=== PATIENT | male | born 1950 | race African-American/Black ===

== ENCOUNTER 2018-07-16 16:28 | Inpatient (IN) | payer MEDICARE ==
[~2018-07-16] VITALS: Ht 167.6 cm; Wt 58.8 kg
[2018-07-16 17:15] LABS: BASOPHILS % (AUTO) 0.8 % (0.0-2.0); EOSINOPHILS % (AUTO) 0.4 % (1.0-6.0); HEMATOCRIT 32.7 % (41-53); HEMOGLOBIN 10.5 g/dL (13.5-17.5); LYMPHOCYTES # (AUTO) 0.7 K/uL (1.0-4.8); MEAN CORPUSCULAR HEMOGLOBIN 27.7 pg (26.0-34.0); MEAN CORPUSCULAR HGB CONC 32.3 G/dL (31.0-37.0); MEAN CORPUSCULAR VOLUME 86 fL (80-100); MONOCYTES % (AUTO) 8.8 % (2.0-9.0); NEUTROPHILS # (AUTO) 9.6 K/uL (1.8-7.7); PLATELET COUNT (AUTO) 506 K/uL (150-450); RED BLOOD CELL COUNT(AUTO) 3.81 MIL/uL (4.50-5.90); RED CELL DISTRIBUTION WIDTH 15.7 % (11.5-14.5)
[2018-07-16 17:41] LABS: ALBUMIN 2.7 g/dL (3.4-5.0); BILIRUBIN,TOTAL 0.5 mg/dL (0.1-1.0); CALCIUM, TOTAL 9.3 mg/dL (8.8-10.5); TOTAL PROTEIN, SERUM 7.6 g/dL (6.4-8.2)
[2018-07-16 17:59] LABS: CREATININE 20.45 mg/dL (0.60-1.30)
[2018-07-16] MEDS ORDERED: INSULIN REGULAR, HUMAN 100 UNITS/ML IVP ONE (18:15)
[2018-07-16] MEDS ORDERED: ALBUTEROL SULFATE 2.5 MG/0.5 ML NEB SOLUTION NEB ONE (18:15)
[2018-07-16] MEDS ORDERED: DEXTROSE 50%-WATER 25 GM/50 ML SYRINGE IVP ONE (18:15)
[2018-07-16] MEDS ORDERED: 0.9% SODIUM CHLORIDE 10 ML SYRINGE IVP PRN (18:30)
[2018-07-16] MEDS ORDERED: ONDANSETRON HCL 4 MG/2 ML VIAL IVP PRN (18:30)
[2018-07-16] MEDS ORDERED: ACETAMINOPHEN 325 MG TABLET PO PRN (18:30)
[2018-07-16] MEDS ORDERED: PARICALCITOL 5 MCG/1 ML VIAL IVP ONE (18:45)
[2018-07-16 19:33] VITALS: BP 200/90
[2018-07-16] MEDS ORDERED: CloNIDine HCL 0.1 MG TABLET PO PRN (21:15)
[2018-07-16] MEDS ORDERED: BISACODYL 10 MG RECTAL RECTAL SUPPOSITORY PR PRN (21:15)
[2018-07-16] MEDS ORDERED: PNEUMOCOCCAL VACCINE POLYVALENT 0.5 ML VIAL [PPSV23] IM ONE (22:15)
[2018-07-16 23:49] VITALS: BP 129/78
[2018-07-17 04:49] VITALS: BP 175/93
[2018-07-17 06:29] LABS: BASOPHILS % (AUTO) 0.9 % (0.0-2.0); HEMATOCRIT 31.6 % (41-53); HEMOGLOBIN 10.2 g/dL (13.5-17.5); LYMPHOCYTES # (AUTO) 0.9 K/uL (1.0-4.8); LYMPHOCYTES % (AUTO) 8.5 % (22.0-44.0); MEAN CORPUSCULAR HEMOGLOBIN 27.6 pg (26.0-34.0); MEAN CORPUSCULAR HGB CONC 32.2 G/dL (31.0-37.0); MEAN CORPUSCULAR VOLUME 86 fL (80-100); MONOCYTES % (AUTO) 9.4 % (2.0-9.0); NEUTROPHILS # (AUTO) 8.7 K/uL (1.8-7.7); NEUTROPHILS % (AUTO) 80.2 % (40.0-70.0); PLATELET COUNT (AUTO) 498 K/uL (150-450); RED BLOOD CELL COUNT(AUTO) 3.67 MIL/uL (4.50-5.90); RED CELL DISTRIBUTION WIDTH 16.3 % (11.5-14.5)
[2018-07-17 06:33] VITALS: BP 159/88
[2018-07-17 06:49] LABS: ALBUMIN 2.7 g/dL (3.4-5.0); BILIRUBIN,TOTAL 0.6 mg/dL (0.1-1.0); CREATININE 12.46 mg/dL (0.60-1.30); POTASSIUM 5.4 mmol/L (3.5-5.1); TOTAL PROTEIN, SERUM 7.4 g/dL (6.4-8.2)
[2018-07-17 07:42] VITALS: BP 135/91
[2018-07-17] MEDS: FAMOTIDINE 20 MG TABLET PO SCH (08:38)
[2018-07-17] MEDS: HEPARIN SODIUM,PORCINE 5,000 UNITS/ML VIAL SQ SCH ×2 (08:38→19:49)
[2018-07-17] MEDS: DOCUSATE SODIUM 100 MG CAPSULE PO SCH ×2 (08:38→19:48)
[2018-07-17] MEDS: AmLODIPine BESYLATE 10 MG TABLET PO SCH (08:38)
[2018-07-17 11:11] VITALS: BP 138/82
[2018-07-17] MEDS ORDERED: SODIUM CHLORIDE 0.9% 1,000 ML IV ONE (13:46)
[2018-07-17 15:18] VITALS: BP 150/77
[2018-07-17 19:39] VITALS: BP 119/63
[2018-07-17] MEDS: ACETAMINOPHEN 325 MG TABLET PO PRN (19:49)
[2018-07-18] VITALS (7 sets, daily range): BP systolic 108–157; BP diastolic 67–90
[2018-07-18] MEDS: HEPARIN SODIUM,PORCINE 5,000 UNITS/ML VIAL SQ SCH ×2 (08:09→20:38)
[2018-07-18] MEDS: FAMOTIDINE 20 MG TABLET PO SCH (08:09)
[2018-07-18] MEDS: DOCUSATE SODIUM 100 MG CAPSULE PO SCH ×2 (08:10→20:37)
[2018-07-18] MEDS: AmLODIPine BESYLATE 10 MG TABLET PO SCH (08:11)
[2018-07-18] MEDS ORDERED: SODIUM CHLORIDE 0.9% 1,000 ML IV ONE (08:16)
[2018-07-18 09:28] LABS: BASOPHILS % (AUTO) 0.6 % (0.0-2.0); EOSINOPHILS % (AUTO) 0.6 % (1.0-6.0); HEMATOCRIT 36.1 % (41-53); HEMOGLOBIN 11.4 g/dL (13.5-17.5); LYMPHOCYTES # (AUTO) 0.8 K/uL (1.0-4.8); LYMPHOCYTES % (AUTO) 7.1 % (22.0-44.0); MEAN CORPUSCULAR HEMOGLOBIN 27.6 pg (26.0-34.0); MEAN CORPUSCULAR HGB CONC 31.7 G/dL (31.0-37.0); MEAN CORPUSCULAR VOLUME 87 fL (80-100); MONOCYTES % (AUTO) 8.7 % (2.0-9.0); NEUTROPHILS # (AUTO) 9.8 K/uL (1.8-7.7); PLATELET COUNT (AUTO) 541 K/uL (150-450); RED BLOOD CELL COUNT(AUTO) 4.14 MIL/uL (4.50-5.90); RED CELL DISTRIBUTION WIDTH 16.3 % (11.5-14.5)
[2018-07-18 09:38] LABS: CALCIUM, TOTAL 11.5 mg/dL (8.8-10.5); CREATININE 6.94 mg/dL (0.60-1.30)
[2018-07-18] MEDS: CLINDAMYCIN HCL 300 MG CAPSULE PO SCH ×3 (11:17→23:21)
[2018-07-18] MEDS: ACETAMINOPHEN 325 MG TABLET PO PRN (11:17)
[2018-07-18] MEDS ORDERED: MANNITOL 25%-12.5 GM/50 ML VIAL IVP ONE (12:00)
[2018-07-19 04:21] VITALS: BP 138/59
[2018-07-19] MEDS: ACETAMINOPHEN 325 MG TABLET PO PRN (06:43)
[2018-07-19 07:14] VITALS: BP 117/89
[2018-07-19] MEDS: VITAMIN B COMP/VIT C/FOLIC ACID CAPSULE PO SCH (08:34)
[2018-07-19] MEDS: FAMOTIDINE 20 MG TABLET PO SCH (08:35)
[2018-07-19] MEDS: CLINDAMYCIN HCL 300 MG CAPSULE PO SCH ×2 (08:35→16:21)
[2018-07-19] MEDS: HEPARIN SODIUM,PORCINE 5,000 UNITS/ML VIAL SQ SCH ×2 (08:35→20:40)
[2018-07-19] MEDS: EPOETIN ALFA 10,000 UNITS/ML VIAL SQ SCH (08:36)
[2018-07-19] MEDS: DOCUSATE SODIUM 100 MG CAPSULE PO SCH ×2 (08:36→20:39)
[2018-07-19] MEDS: AmLODIPine BESYLATE 10 MG TABLET PO SCH (09:00)
[2018-07-19 11:02] VITALS: BP 122/62
[2018-07-19] MEDS: ASPIRIN 81 MG CHEWABLE TABLET PO SCH (12:07)
[2018-07-19] MEDS: HYDROCODONE/ACETAMINOPHEN 5-325 MG TABLET PO PRN ×2 (12:09→18:37)
[2018-07-19 14:55] VITALS: BP 132/72
[2018-07-19] MEDS ORDERED: QUEtiapine FUMARATE 25 MG TABLET PO PRN (19:00)
[2018-07-19 20:04] VITALS: BP 140/92
[2018-07-19] MEDS: QUEtiapine FUMARATE 25 MG TABLET PO SCH (20:39)
[2018-07-20] MEDS: HYDROCODONE/ACETAMINOPHEN 5-325 MG TABLET PO PRN ×2 (00:26→07:48)
[2018-07-20] MEDS: CLINDAMYCIN HCL 300 MG CAPSULE PO SCH ×3 (00:26→16:51)
[2018-07-20 00:27] VITALS: BP 145/73
[2018-07-20 04:59] VITALS: BP 132/76
[2018-07-20 07:36] VITALS: BP 165/85
[2018-07-20] MEDS: AmLODIPine BESYLATE 10 MG TABLET PO SCH (07:48)
[2018-07-20] MEDS: VITAMIN B COMP/VIT C/FOLIC ACID CAPSULE PO SCH (07:48)
[2018-07-20] MEDS: ASPIRIN 81 MG CHEWABLE TABLET PO SCH (07:48)
[2018-07-20] MEDS: DOCUSATE SODIUM 100 MG CAPSULE PO SCH ×2 (07:48→21:14)
[2018-07-20] MEDS: FAMOTIDINE 20 MG TABLET PO SCH (07:48)
[2018-07-20] MEDS: HEPARIN SODIUM,PORCINE 5,000 UNITS/ML VIAL SQ SCH ×2 (07:51→21:14)
[2018-07-20 10:56] VITALS: BP 126/60
[2018-07-20] MEDS ORDERED: SODIUM CHLORIDE 0.9% 0 ML ONE (11:40)
[2018-07-20] MEDS ORDERED: IOVERSOL 350 MG/ML 100 ML VIAL ONE (11:40)
[2018-07-20 13:24] LABS: GLUCOMETER DEV NAME(LOC) 5S.1; GLUCOSE,POINT OF CARE 107 MG/DL (70-110)
[2018-07-20] MEDS ORDERED: QUEtiapine FUMARATE 25 MG TABLET PO PRN (15:00)
[2018-07-20 15:43] VITALS: BP 125/87
[2018-07-20] MEDS ORDERED: HEPARIN SODIUM,PORCINE 1,000 UNITS/ML VIAL IVP ONE (17:48)
[2018-07-20 19:55] VITALS: BP 123/79
[2018-07-20] MEDS: QUEtiapine FUMARATE 25 MG TABLET PO SCH (21:14)
[2018-07-21] MEDS: CLINDAMYCIN HCL 300 MG CAPSULE PO SCH ×4 (00:04→23:37)
[2018-07-21] MEDS: HYDROCODONE/ACETAMINOPHEN 5-325 MG TABLET PO PRN ×2 (00:04→11:35)
[2018-07-21 00:53] VITALS: BP 109/70
[2018-07-21 04:34] VITALS: BP 114/70
[2018-07-21] MEDS ORDERED: SODIUM CHLORIDE 0.9% 1,000 ML IV ONE ×2 (08:00→08:29)
[2018-07-21 08:09] VITALS: BP 139/79
[2018-07-21] MEDS ORDERED: SODIUM CHLORIDE 0.9% IRRIG BAG 1,000 ML IRRIG ONE (08:49)
[2018-07-21] MEDS: HEPARIN SODIUM,PORCINE 5,000 UNITS/ML VIAL SQ SCH ×2 (09:00→20:22)
[2018-07-21] MEDS: FAMOTIDINE 20 MG TABLET PO SCH (09:00)
[2018-07-21] MEDS: AmLODIPine BESYLATE 10 MG TABLET PO SCH (09:00)
[2018-07-21] MEDS: EPOETIN ALFA 10,000 UNITS/ML VIAL SQ SCH (09:00)
[2018-07-21] MEDS: ASPIRIN 81 MG CHEWABLE TABLET PO SCH (09:00)
[2018-07-21] MEDS: DOCUSATE SODIUM 100 MG CAPSULE PO SCH ×2 (09:00→20:22)
[2018-07-21] MEDS: VITAMIN B COMP/VIT C/FOLIC ACID CAPSULE PO SCH (09:00)
[2018-07-21] MEDS ORDERED: BUPIVACAINE 0.25%/EPI 1:200,000/PF 10 ML VIAL ONE (09:24)
[2018-07-21] MEDS ORDERED: HYDROmorphone 2 MG/ML SYRINGE IVP PRN (09:30)
[2018-07-21] MEDS ORDERED: FentaNYL CITRATE-PF 100 MCG/2 ML VIAL IVP PRN (09:30)
[2018-07-21] MEDS ORDERED: MEPERIDINE-PF 25 MG/ML VIAL IVP PRN (09:30)
[2018-07-21] MEDS ORDERED: VANCOMYCIN HCL 1 GM/D5% WATER 200 ML IV ONE (11:00)
[2018-07-21] MEDS ORDERED: VANCOMYCIN HCL 1 GM/D5% WATER 200 ML IV PRN (11:15)
[2018-07-21] MEDS ORDERED: SODIUM CHLORIDE 0.9% 250 ML IV ONE (11:19)
[2018-07-21 12:21] VITALS: BP 156/91
[2018-07-21 16:19] VITALS: BP 155/95
[2018-07-21] MEDS: OXYGEN THERAPY IH SCH (20:00)
[2018-07-21] MEDS: QUEtiapine FUMARATE 25 MG TABLET PO SCH (20:22)
[2018-07-21 20:29] VITALS: BP 120/72
[2018-07-22 01:02] VITALS: BP 131/71
[2018-07-22 03:50] VITALS: BP 161/77
[2018-07-22] MEDS: HYDROCODONE/ACETAMINOPHEN 5-325 MG TABLET PO PRN ×3 (03:50→21:04)
[2018-07-22] MEDS ORDERED: PROPOFOL 1% 20 ML VIAL IVP ONE (05:08)
[2018-07-22] MEDS ORDERED: MIDAZOLAM HCL 2 MG/2 ML VIAL IVP ONE (05:08)
[2018-07-22 07:52] VITALS: BP 163/89
[2018-07-22] MEDS: OXYGEN THERAPY IH SCH ×2 (08:00→20:00)
[2018-07-22] MEDS: CLINDAMYCIN HCL 300 MG CAPSULE PO SCH ×2 (08:38→16:56)
[2018-07-22] MEDS: ASPIRIN 81 MG CHEWABLE TABLET PO SCH (08:38)
[2018-07-22] MEDS: DOCUSATE SODIUM 100 MG CAPSULE PO SCH ×2 (08:39→21:03)
[2018-07-22] MEDS: VITAMIN B COMP/VIT C/FOLIC ACID CAPSULE PO SCH (08:39)
[2018-07-22] MEDS: FAMOTIDINE 20 MG TABLET PO SCH (08:39)
[2018-07-22] MEDS: AmLODIPine BESYLATE 10 MG TABLET PO SCH (08:40)
[2018-07-22] MEDS: HEPARIN SODIUM,PORCINE 5,000 UNITS/ML VIAL SQ SCH ×2 (08:41→21:03)
[2018-07-22] MEDS: HYDROmorphone 2 MG/ML SYRINGE IVP PRN ×2 (08:42→17:03)
[2018-07-22 11:48] VITALS: BP 145/108
[2018-07-22 15:27] VITALS: BP 145/80
[2018-07-22] MEDS ORDERED: HEPARIN SODIUM,PORCINE 1,000 UNITS/ML VIAL IVP ONE (16:57)
[2018-07-22 20:45] VITALS: BP 140/80
[2018-07-22] MEDS: ACETAMINOPHEN 325 MG TABLET PO PRN (21:03)
[2018-07-22] MEDS: QUEtiapine FUMARATE 25 MG TABLET PO SCH (21:13)
[2018-07-23 00:25] VITALS: BP 131/76
[2018-07-23] MEDS: CLINDAMYCIN HCL 300 MG CAPSULE PO SCH ×3 (00:37→16:39)
[2018-07-23] MEDS: HYDROmorphone 2 MG/ML SYRINGE IVP PRN ×2 (00:55→07:50)
[2018-07-23 04:50] VITALS: BP 142/75
[2018-07-23] MEDS: OXYGEN THERAPY IH SCH (08:00)
[2018-07-23] MEDS: DOCUSATE SODIUM 100 MG CAPSULE PO SCH (08:26)
[2018-07-23] MEDS: VITAMIN B COMP/VIT C/FOLIC ACID CAPSULE PO SCH (08:28)
[2018-07-23] MEDS: ASPIRIN 81 MG CHEWABLE TABLET PO SCH (08:28)
[2018-07-23] MEDS: AmLODIPine BESYLATE 10 MG TABLET PO SCH (08:29)
[2018-07-23] MEDS: EPOETIN ALFA 10,000 UNITS/ML VIAL SQ SCH (08:29)
[2018-07-23] MEDS: FAMOTIDINE 20 MG TABLET PO SCH (08:29)
[2018-07-23] MEDS: HEPARIN SODIUM,PORCINE 5,000 UNITS/ML VIAL SQ SCH (08:29)
[2018-07-23 10:32] VITALS: BP 141/74
[2018-07-23 12:19] VITALS: BP 143/71
[2018-07-23] MEDS: HYDROCODONE/ACETAMINOPHEN 5-325 MG TABLET PO PRN (12:42)
[2018-07-23] MEDS ORDERED: VANCOMYCIN HCL 500 MG in DEXTROSE 5%-WATER 100 ML IV ONE (16:00)
[2018-07-23 16:27] VITALS: BP 146/66
[2018-07-23] MEDS: ACETAMINOPHEN 325 MG TABLET PO PRN (16:39)
[2018-07-23] MEDS ORDERED: AMLO-512 PO (17:45)
[2018-07-23] MEDS ORDERED: ASPI81 PO (17:45)
[2018-07-23] MEDS ORDERED: DSS100 PO (17:46)
[2018-07-23] MEDS ORDERED: CLIN300C3 PO (17:46)
[2018-07-23] MEDS ORDERED: FAMO20 PO (17:47)
[2018-07-23] MEDS ORDERED: EPOE20002 SQ (17:47)
[2018-07-23] MEDS ORDERED: HEPA500018 SQ (17:48)
[2018-07-23] MEDS ORDERED: QUET25TA PO ×2 (17:49→17:56)
[2018-07-23] MEDS ORDERED: ACET-2247 PO (17:50)
[2018-07-23] MEDS ORDERED: FOLI1CAP2 PO (17:50)
[2018-07-23] MEDS ORDERED: BISA5TAB12 PO (17:51)
[2018-07-23] MEDS ORDERED: CLON-570 PO (17:52)
[2018-07-23] MEDS ORDERED: HYDR-4061 PO (17:53)
[2018-07-23] MEDS ORDERED: HYDR2I IV (17:54)
[2018-07-23] MEDS ORDERED: VANC1IV IV (17:57)
[2018-07-23 21:10] LABS: GLUCOMETER DEV NAME(LOC) 5N.1; GLUCOSE,POINT OF CARE 133 MG/DL (70-110)
[2018-07-23 21:49] LABS: GLUCOMETER DEV NAME(LOC) 5S.2; GLUCOSE,POINT OF CARE 101 MG/DL (70-110)
== END 2018-07-23 19:05 | DRG 622 ==
LOC: EMS 16:28 → 5S 18:33
PROVIDERS: ADMIT Internal Medicine; ATTEND Internal Medicine
PROC: 5A1D70Z Performance of Urinary Filtration, Intermittent, Less than 6 Hours Per Day (ICD-10-PCS; 2018-07-16)
PROC: 5A1D70Z Performance of Urinary Filtration, Intermittent, Less than 6 Hours Per Day (ICD-10-PCS; 2018-07-17)
PROC: 5A1D70Z Performance of Urinary Filtration, Intermittent, Less than 6 Hours Per Day (ICD-10-PCS; 2018-07-18)
PROC: 5A1D70Z Performance of Urinary Filtration, Intermittent, Less than 6 Hours Per Day (ICD-10-PCS; 2018-07-20)
PROC: 0JB00ZZ Excision of Scalp Subcutaneous Tissue and Fascia, Open Approach (ICD-10-PCS; principal; 2018-07-21 09:00)
PROC: 5A1D70Z Performance of Urinary Filtration, Intermittent, Less than 6 Hours Per Day (ICD-10-PCS; 2018-07-22)
DX: E87.5 Hyperkalemia (principal); N18.6 End stage renal disease; L02.811 Cutaneous abscess of head [any part, except face]; I13.2 Hypertensive heart and chronic kidney disease with heart failure and with stage 5 chronic kidney disease, or end stage renal disease; E11.52 Type 2 diabetes mellitus with diabetic peripheral angiopathy with gangrene; E46 Unspecified protein-calorie malnutrition; G93.40 Encephalopathy, unspecified; N25.81 Secondary hyperparathyroidism of renal origin; I96 Gangrene, not elsewhere classified; E87.0 Hyperosmolality and hypernatremia; E87.2 Acidosis; D63.8 Anemia in other chronic diseases classified elsewhere; E11.22 Type 2 diabetes mellitus with diabetic chronic kidney disease; E83.39 Other disorders of phosphorus metabolism; E83.51 Hypocalcemia; G89.4 Chronic pain syndrome; I50.9 Heart failure, unspecified; Z59.0 Homelessness; Z91.19 Patient's noncompliance with other medical treatment and regimen; Z99.2 Dependence on renal dialysis; Z89.421 Acquired absence of other right toe(s)
CPT/HCPCS: 87070; 87081; 87205; 87340; 88304; 92610; 93005; 94761; 97161; 99291; G0378; J0885; J1170; J1644; J2150; J2250; J2501; J2704; J3370; J3490; J7030; J7050; J7060

== ENCOUNTER 2018-10-28 14:40 | Inpatient (IN) | payer MEDICARE ==
[~2018-10-28] VITALS: Ht 167.6 cm; Wt 57.8 kg
[~2018-10-28 14:40] MED LIST: AMLO10TA7 PO; ASPI81 PO; DAPT500I IV; MUPI15CR12 TP; PARI1CAP11 IVP; SODI650T PO
[2018-10-28] MEDS ORDERED: METR500 IV (15:40)
[2018-10-28] MEDS ORDERED: [UNRECOGNIZED DRUG - CODE] IV (15:40)
[2018-10-28] MEDS ORDERED: VANC1IV IV (15:40)
[2018-10-28] MEDS ORDERED: VANCOMYCIN HCL 1 GM/D5% WATER 200 ML IV ONE (16:15)
[2018-10-28] MEDS ORDERED: MetroNIDAZOLE 500 MG/NACL 100 ML IV ONE (16:15)
[2018-10-28] MEDS: ONDANSETRON HCL 4 MG/2 ML VIAL IVP PRN ×2 (16:25→16:34)
[2018-10-28] MEDS: ACETAMINOPHEN 325 MG TABLET PO PRN ×2 (16:25→16:34)
[2018-10-28] MEDS ORDERED: SODIUM CHLORIDE 0.9% 500 ML IV ONE (17:06)
[2018-10-28 17:17] VITALS: BP 154/76
[2018-10-28 19:51] VITALS: BP 162/79
[2018-10-28] MEDS ORDERED: MORPHINE SULFATE 2 MG/ML SYRINGE IVP PRN (20:45)
[2018-10-28] MEDS ORDERED: ZOLPIDEM TARTRATE 5 MG TABLET PO PRN (22:45)
[2018-10-28] MEDS ORDERED: ONDANSETRON HCL 4 MG/2 ML VIAL IVP PRN (22:45)
[2018-10-28] MEDS ORDERED: VANCOMYCIN HCL 1 GM/D5% WATER 200 ML IV PRN (23:15)
[2018-10-28 23:29] VITALS: BP 144/79
[2018-10-29] MEDS: HEPARIN SODIUM,PORCINE 5,000 UNITS/ML VIAL SQ SCH ×4 (00:01→23:57)
[2018-10-29] MEDS: MetroNIDAZOLE 500 MG/NACL 100 ML IV SCH ×2 (00:55→08:02)
[2018-10-29 02:29] LABS: GLUCOMETER DEV NAME(LOC) 4E.2; GLUCOSE,POINT OF CARE 118 MG/DL (70-110)
[2018-10-29] MEDS ORDERED: DEXTROSE 50%-WATER 25 GM/50 ML SYRINGE IVP PRN (02:30)
[2018-10-29] MEDS ORDERED: INSULIN LISPRO 100 UNITS/ML SQ PRN (02:30)
[2018-10-29 03:47] VITALS: BP 154/84
[2018-10-29] MEDS: MORPHINE SULFATE 2 MG/ML SYRINGE IVP PRN ×3 (05:54→22:15)
[2018-10-29 06:12] LABS: BASOPHILS % (AUTO) 1.1 % (0.0-2.0); EOSINOPHILS % (AUTO) 2.3 % (1.0-6.0); HEMATOCRIT 29.4 % (41-53); HEMOGLOBIN 9.1 g/dL (13.5-17.5); LYMPHOCYTES # (AUTO) 1.5 K/uL (1.0-4.8); LYMPHOCYTES % (AUTO) 20.9 % (22.0-44.0); MEAN CORPUSCULAR HEMOGLOBIN 27.3 pg (26.0-34.0); MEAN CORPUSCULAR VOLUME 88 fL (80-100); MONOCYTES # (AUTO) 0.5 K/uL (0.1-1.0); MONOCYTES % (AUTO) 7.4 % (2.0-9.0); NEUTROPHILS % (AUTO) 68.3 % (40.0-70.0); PLATELET COUNT (AUTO) 392 K/uL (150-450); RED BLOOD CELL COUNT(AUTO) 3.33 MIL/uL (4.50-5.90); RED CELL DISTRIBUTION WIDTH 23.1 % (11.5-14.5)
[2018-10-29 06:29] LABS: MAGNESIUM 2.6 mg/dL (1.80-2.40)
[2018-10-29 07:04] LABS: GLUCOMETER DEV NAME(LOC) 4E.2; GLUCOSE,POINT OF CARE 78 MG/DL (70-110)
[2018-10-29 07:43] LABS: C-REACTIVE PROTEIN QUANT 1.58 mg/dL (0.00-0.30); CREATININE 10.13 mg/dL (0.60-1.30)
[2018-10-29 07:51] LABS: POTASSIUM 6.6 mmol/L (3.5-5.1)
[2018-10-29] MEDS: ASPIRIN 81 MG CHEWABLE TABLET PO SCH (08:02)
[2018-10-29] MEDS: PANTOPRAZOLE SODIUM 40 MG DR TABLET PO SCH ×3 (08:02→22:15)
[2018-10-29] MEDS: AmLODIPine BESYLATE 10 MG TABLET PO SCH (08:03)
[2018-10-29 08:08] VITALS: BP 161/91
[2018-10-29 08:29] LABS: ERYTHROCYTE SEDIMENTATION RATE 32 MM/HR (0-15)
[2018-10-29] MEDS ORDERED: DEXTROSE 50%-WATER 25 GM/50 ML SYRINGE IVP ONE ×2 (10:00)
[2018-10-29] MEDS ORDERED: INSULIN REGULAR, HUMAN 100 UNITS/ML IV ONE (10:00)
[2018-10-29] MEDS ORDERED: CALCIUM GLUCONATE 1,000 MG in DEXTROSE 5%-WATER 50 ML IV ONE ×4 (10:00)
[2018-10-29] MEDS ORDERED: SODIUM POLYSTYRENE SULFONATE 15 GM/60 ML SUSPENSION BOTTLE PO ONE ×2 (10:00)
[2018-10-29 10:14] LABS: GLUCOMETER DEV NAME(LOC) 4E.2; GLUCOSE,POINT OF CARE 129 MG/DL (70-110)
[2018-10-29 11:30] VITALS: BP 130/73
[2018-10-29 12:10] LABS: GLUCOMETER DEV NAME(LOC) 4E.2; GLUCOSE,POINT OF CARE 114 MG/DL (70-110)
[2018-10-29 16:09] VITALS: BP 145/69
[2018-10-29 17:59] LABS: GLUCOMETER DEV NAME(LOC) 4E.2; GLUCOSE,POINT OF CARE 113 MG/DL (70-110)
[2018-10-29] MEDS ORDERED: PNEUMOCOCCAL VACCINE POLYVALENT 0.5 ML VIAL [PPSV23] IM ONE (18:15)
[2018-10-29 22:15] VITALS: BP 162/85
[2018-10-30] MEDS: MORPHINE SULFATE 2 MG/ML SYRINGE IVP PRN ×2 (05:08→12:07)
[2018-10-30 05:44] VITALS: BP 131/78
[2018-10-30 06:49] LABS: GLUCOMETER DEV NAME(LOC) 4E.2; GLUCOSE,POINT OF CARE 103 MG/DL (70-110)
[2018-10-30 07:40] LABS: CALCIUM, TOTAL 9.2 mg/dL (8.8-10.5); CREATININE 6.49 mg/dL (0.60-1.30); POTASSIUM 4.8 mmol/L (3.5-5.1)
[2018-10-30 07:45] VITALS: BP 147/81
[2018-10-30] MEDS: ASPIRIN 81 MG CHEWABLE TABLET PO SCH (07:57)
[2018-10-30] MEDS: PANTOPRAZOLE SODIUM 40 MG DR TABLET PO SCH (07:57)
[2018-10-30] MEDS: AmLODIPine BESYLATE 10 MG TABLET PO SCH (07:57)
[2018-10-30] MEDS: HEPARIN SODIUM,PORCINE 5,000 UNITS/ML VIAL SQ SCH (07:57)
[2018-10-30 11:20] VITALS: BP 125/61
[2018-10-30 11:29] LABS: GLUCOMETER DEV NAME(LOC) 4E.2; GLUCOSE,POINT OF CARE 120 MG/DL (70-110)
== END 2018-10-30 14:15 | disposition short-term general hospital (02) | DRG 564 ==
LOC: EMS 14:44 → 4E 16:16
PROVIDERS: ADMIT Internal Medicine; ATTEND Internal Medicine
PROC: 5A1D70Z Performance of Urinary Filtration, Intermittent, Less than 6 Hours Per Day (ICD-10-PCS; principal; 2018-10-29)
PROC: 5A1D70Z Performance of Urinary Filtration, Intermittent, Less than 6 Hours Per Day (ICD-10-PCS; 2018-10-30)
DX: T87.44 Infection of amputation stump, left lower extremity (principal); N18.6 End stage renal disease; M86.8X8 Other osteomyelitis, other site; E87.2 Acidosis; N25.81 Secondary hyperparathyroidism of renal origin; E87.1 Hypo-osmolality and hyponatremia; E46 Unspecified protein-calorie malnutrition; I12.0 Hypertensive chronic kidney disease with stage 5 chronic kidney disease or end stage renal disease; L03.116 Cellulitis of left lower limb; E87.5 Hyperkalemia; D63.8 Anemia in other chronic diseases classified elsewhere; E83.51 Hypocalcemia; E83.39 Other disorders of phosphorus metabolism; R62.7 Adult failure to thrive; E11.69 Type 2 diabetes mellitus with other specified complication; Y83.5 Amputation of limb(s) as the cause of abnormal reaction of the patient, or of later complication, without mention of misadventure at the time of the procedure; E11.51 Type 2 diabetes mellitus with diabetic peripheral angiopathy without gangrene; E11.22 Type 2 diabetes mellitus with diabetic chronic kidney disease; Z82.49 Family history of ischemic heart disease and other diseases of the circulatory system; Z83.3 Family history of diabetes mellitus; Z89.512 Acquired absence of left leg below knee; Z99.2 Dependence on renal dialysis; Z79.82 Long term (current) use of aspirin; Z79.2 Long term (current) use of antibiotics; Z79.899 Other long term (current) drug therapy; Y92.89 Other specified places as the place of occurrence of the external cause; Z28.21 Immunization not carried out because of patient refusal
CPT/HCPCS: 83735; 85651; 86140; 87070; 87081; 87205; G0378; J0610; J1644; J1815; J2270; J2405; J3370; J3490; J7040; J7060

== ENCOUNTER 2018-11-23 17:46 | Inpatient (IN) | payer MEDICARE, MEDICAID ==
[~2018-11-23] VITALS: Ht 165.1 cm; Wt 63.2 kg
[~2018-11-23 17:46] MED LIST changes: -DAPT500I IV; +METR500 IV; -MUPI15CR12 TP; -PARI1CAP11 IVP; -SODI650T PO; +VANC1IV IV; +[UNRECOGNIZED DRUG - CODE] IV
[2018-11-23] MEDS ORDERED: 0.9% SODIUM CHLORIDE 10 ML SYRINGE IVP PRN (18:00)
[2018-11-23] MEDS ORDERED: LORazepam 2 MG/ML VIAL IVP ONE ×2 (18:00→19:30)
[2018-11-23] MEDS ORDERED: SODIUM CHLORIDE 0.9% 1,700 ML IV ONE (18:01)
[2018-11-23] MEDS ORDERED: GABA-533 PO (18:04)
[2018-11-23] MEDS ORDERED: CLOP75TA3 PO (18:04)
[2018-11-23] MEDS ORDERED: PERCT10 PO (18:04)
[2018-11-23] MEDS ORDERED: NIFE30TA98 PO (18:04)
[2018-11-23] MEDS ORDERED: ATOR40TA28 PO (18:04)
[2018-11-23] MEDS ORDERED: SEVE800T17 PO (18:04)
[2018-11-23] MEDS ORDERED: NALOXONE HCL 1 MG/ML 2 ML SYG IVP ONE (18:15)
[2018-11-23] MEDS ORDERED: ACETAMINOPHEN 1000 MG/ISO-OSM 100 ML IV ONE (18:15)
[2018-11-23 18:19] LABS: BASOPHILS % (AUTO) 1.3 % (0.0-2.0); EOSINOPHILS % (AUTO) 1.4 % (1.0-6.0); HEMATOCRIT 32.2 % (41-53); LYMPHOCYTES # (AUTO) 0.6 K/uL (1.0-4.8); LYMPHOCYTES % (AUTO) 3.2 % (22.0-44.0); MEAN CORPUSCULAR HEMOGLOBIN 27.1 pg (26.0-34.0); MEAN CORPUSCULAR HGB CONC 31.1 G/dL (31.0-37.0); MEAN CORPUSCULAR VOLUME 87 fL (80-100); MONOCYTES # (AUTO) 0.7 K/uL (0.1-1.0); MONOCYTES % (AUTO) 3.7 % (2.0-9.0); NEUTROPHILS # (AUTO) 17.2 K/uL (1.8-7.7); PLATELET COUNT (AUTO) 612 K/uL (150-450); RED BLOOD CELL COUNT(AUTO) 3.69 MIL/uL (4.50-5.90); RED CELL DISTRIBUTION WIDTH 22.3 % (11.5-14.5)
[2018-11-23 18:23] LABS: NEUTROPHILS % (AUTO) 90.4 % (40.0-70.0)
[2018-11-23 18:36] LABS: PROTHROMBIN TIME 10.5 SEC (9.4-11.6)
[2018-11-23 18:38] LABS: ANION GAP 10 mmol/L (8-16); CALCIUM, TOTAL 9.5 mg/dL (8.8-10.5); CARBON DIOXIDE 29 mmol/L (22-29); CHLORIDE 101 mmol/L (98-107); CREATININE 7.28 mg/dL (0.60-1.30); GLOMERULAR FILTR. RATE CALC 9 mL/min (>60); GLUCOSE,RANDOM 122 mg/dL (70-110); POTASSIUM 5.9 mmol/L (3.5-5.1); SODIUM SERUM 140 mmol/L (136-145); UREA NITROGEN, BLOOD 47 mg/dL (7-18)
[2018-11-23 18:45] LABS: LACTIC ACID 1.6 mmol/L (0.4-2.0)
[2018-11-23 19:03] LABS: ALANINE AMINOTRANSFERASE 14 U/L (12-78); ALKALINE PHOSPHATASE 135 U/L (46-116); ASPARTATE AMINOTRANSFERASE 13 U/L (15-37); BILIRUBIN,TOTAL 0.2 mg/dL (0.1-1.0); CREATINE KINASE, TOTAL ONLY 91 U/L (39-308); TOTAL PROTEIN, SERUM 7.7 g/dL (6.4-8.2)
[2018-11-23 19:06] LABS: B-TYPE NATRIURETIC PEPTIDE 618 pg/mL (0-100)
[2018-11-23 19:11] LABS: APPEARANCE,URINE CLEAR (CLEAR); BILIRUBIN,URINE NEGATIVE (NEGATIVE); GLUCOSE, URINE (UA) 100 mg/dL (NEGATIVE); KETONES,URINE NEGATIVE (NEGATIVE); LEUKOCYTE ESTERASE ,URINE NEGATIVE (NEGATIVE); NITRATE,URINE NEGATIVE (NEGATIVE); OCCULT BLOOD,URINE TRACE (NEGATIVE); PH,URINE 8.5 (5.0-8.0); PROTEIN,URINE SEE CONFIRM (NEGATIVE); UROBILINOGEN,URINE 0.2 mg/dL (<=1.0)
[2018-11-23 19:12] LABS: AMPHET/METH SCREEN,URINE NEGATIVE (NEGATIVE); BARBITURATE SCREEN, URINE NEGATIVE (NEGATIVE); BENZODIAZEPINES SCREEN,URINE NEGATIVE (NEGATIVE); CANNABINOID SCREEN,URINE NEGATIVE (NEGATIVE); COCAINE SCREEN,URINE NEGATIVE (NEGATIVE); METHADONE SCREEN, URINE NEGATIVE (NEGATIVE); OPIATE SCREEN,URINE POSITIVE (NEGATIVE)
[2018-11-23 19:15] LABS: PHENCYCLIDINE SCREEN,URINE NEGATIVE (NEGATIVE)
[2018-11-23 19:25] LABS: SULFOSALICYLIC ACID,URINE 4+ (Negative)
[2018-11-23 19:26] LABS: RBC,URINE 0-2 /HPF (0-2)
[2018-11-23 19:27] LABS: BACTERIA,URINE None Seen /HPF (None Seen); SQUAMOUS EPITHELIAL CELL,UR Rare /LPF (None Seen)
[2018-11-23] MEDS ORDERED: PIPERACILLIN/TAZO 3.375 GM/D5W 50 ML IV ONE (19:30)
[2018-11-23] MEDS ORDERED: CefTRIAXone 1 GM/DEXTROSE 50 ML IV ONE (19:30)
[2018-11-23] MEDS ORDERED: SODIUM BICARBONATE [ADULT] 8.4% 50 MEQ/50 ML SYRINGE IVP ONE (20:45)
[2018-11-23] MEDS ORDERED: BUMETANIDE 0.25 MG/ML 4 ML VIAL IVP ONE (20:45)
[2018-11-23] MEDS ORDERED: ALBUTEROL SULFATE 2.5 MG/0.5 ML NEB SOLUTION NEB ONE (20:45)
[2018-11-23] MEDS ORDERED: DEXTROSE 50%-WATER 25 GM/50 ML SYRINGE IVP ONE (20:45)
[2018-11-23] MEDS ORDERED: CALCIUM GLUCONATE 100 MG/ML 10 ML IVP ONE (20:45)
[2018-11-23] MEDS ORDERED: INSULIN REGULAR, HUMAN 100 UNITS/ML IVP ONE (20:45)
[2018-11-23 20:56] LABS: INFLUENZA TYPE A NEGATIVE FOR TYPE A (NEGATIVE); INFLUENZA TYPE B NEGATIVE FOR TYPE B (NEGATIVE)
[2018-11-23 20:56] LABS: GLUCOSE,POINT OF CARE 119 MG/DL (70-110)
[2018-11-23] MEDS ORDERED: 0.9% SODIUM CHLORIDE 15 ML NEB SOLUTION NEB ONE (21:06)
[2018-11-23] MEDS ORDERED: BISACODYL 10 MG RECTAL RECTAL SUPPOSITORY PR PRN (21:15)
[2018-11-23 21:54] VITALS: BP 117/59
[2018-11-23] MEDS: LINEZOLID 600 MG/ISO-OSM 300 ML IV SCH (22:05)
[2018-11-23 23:05] VITALS: BP 132/67
[2018-11-23] MEDS: MEROPENEM 1 GM in SODIUM CHLORIDE 0.9% 100 ML IV SCH (23:45)
[2018-11-24 04:08] VITALS: BP 132/73
[2018-11-24 07:19] VITALS: BP 152/76
[2018-11-24] MEDS: FAMOTIDINE 20 MG TABLET PO SCH (08:38)
[2018-11-24] MEDS: HEPARIN SODIUM,PORCINE 5,000 UNITS/ML VIAL SQ SCH ×2 (08:38→21:12)
[2018-11-24] MEDS: DOCUSATE SODIUM 100 MG CAPSULE PO SCH ×2 (08:44→21:00)
[2018-11-24] MEDS ORDERED: SODIUM CHLORIDE 0.9% 2,000 ML IV ONE (09:25)
[2018-11-24] MEDS: LINEZOLID 600 MG/ISO-OSM 300 ML IV SCH ×2 (10:00→22:01)
[2018-11-24] MEDS: MEROPENEM 1 GM in SODIUM CHLORIDE 0.9% 100 ML IV SCH (11:00)
[2018-11-24 11:27] VITALS: BP 126/67
[2018-11-24] MEDS ORDERED: *CLINICAL-RENAL DOSING MEDICATIONS CLINICAL ONE (13:45)
[2018-11-24 15:24] VITALS: BP 125/65
[2018-11-24 18:23] LABS: HEMATOCRIT 30.6 % (41-53); HEMOGLOBIN 9.5 g/dL (13.5-17.5); MEAN CORPUSCULAR HEMOGLOBIN 27.4 pg (26.0-34.0); MEAN CORPUSCULAR VOLUME 88 fL (80-100); PLATELET COUNT (AUTO) 521 K/uL (150-450); RED BLOOD CELL COUNT(AUTO) 3.46 MIL/uL (4.50-5.90); RED CELL DISTRIBUTION WIDTH 22.7 % (11.5-14.5)
[2018-11-24 18:38] LABS: ALBUMIN 2.7 g/dL (3.4-5.0); BILIRUBIN,TOTAL 0.2 mg/dL (0.1-1.0); CALCIUM, TOTAL 8.9 mg/dL (8.8-10.5); CREATININE 4.19 mg/dL (0.60-1.30); POTASSIUM 4.7 mmol/L (3.5-5.1)
[2018-11-24 19:00] LABS: BAND NEUTROPHILS % (MANUAL) 5 % (0-5); LYMPHOCYTES % (MANUAL) 3 % (22-44); MONOCYTES % (MANUAL) 5 % (2-9); REACTIVE LYMPHOCYTES 1 % (0-0); SEGMENTED NEUTROPHILS % 86 % (40-70)
[2018-11-24 19:01] LABS: PLATELET MORPHOLOGY COMMENT INCREASED
[2018-11-24 19:41] VITALS: BP 149/72
[2018-11-24] MEDS: ACETAMINOPHEN 325 MG TABLET PO PRN (21:11)
[2018-11-24] MEDS: MEROPENEM 500 MG in SODIUM CHLORIDE 0.9% 50 ML IV SCH (21:12)
[2018-11-24 23:12] VITALS: BP 143/72
[2018-11-24] MEDS: MORPHINE SULFATE 2 MG/ML SYRINGE IVP PRN (23:44)
[2018-11-25 04:38] VITALS: BP 141/67
[2018-11-25 06:47] LABS: BASOPHILS % (AUTO) 0.7 % (0.0-2.0); HEMATOCRIT 22.2 % (41-53); LYMPHOCYTES # (AUTO) 1.1 K/uL (1.0-4.8); MEAN CORPUSCULAR HEMOGLOBIN 27.5 pg (26.0-34.0); MEAN CORPUSCULAR HGB CONC 31.4 G/dL (31.0-37.0); MEAN CORPUSCULAR VOLUME 88 fL (80-100); MONOCYTES # (AUTO) 0.9 K/uL (0.1-1.0); MONOCYTES % (AUTO) 7.7 % (2.0-9.0); NEUTROPHILS # (AUTO) 9.4 K/uL (1.8-7.7); NEUTROPHILS % (AUTO) 79.6 % (40.0-70.0); PLATELET COUNT (AUTO) 455 K/uL (150-450); RED BLOOD CELL COUNT(AUTO) 2.54 MIL/uL (4.50-5.90); RED CELL DISTRIBUTION WIDTH 22.6 % (11.5-14.5)
[2018-11-25 06:56] LABS: ALBUMIN 2.3 g/dL (3.4-5.0); BILIRUBIN,TOTAL 0.2 mg/dL (0.1-1.0); CALCIUM, TOTAL 8.5 mg/dL (8.8-10.5); CREATININE 5.44 mg/dL (0.60-1.30); FREE T4 (FREE THYROXINE) 1.13 ng/dL (0.76-1.46); POTASSIUM 4.5 mmol/L (3.5-5.1); THYROID STIMULATING HORMONE 1.3 uIU/mL (0.36-3.74)
[2018-11-25 07:08] LABS: % IRON SATURATION 16.9 % (30-44)
[2018-11-25 07:53] VITALS: BP 145/83
[2018-11-25] MEDS: HEPARIN SODIUM,PORCINE 5,000 UNITS/ML VIAL SQ SCH (08:21)
[2018-11-25] MEDS: FAMOTIDINE 20 MG TABLET PO SCH (08:22)
[2018-11-25] MEDS: VITAMIN B COMP/VIT C/FOLIC ACID CAPSULE PO SCH (08:22)
[2018-11-25] MEDS: DOCUSATE SODIUM 100 MG CAPSULE PO SCH ×2 (08:22→20:42)
[2018-11-25] MEDS: EPOETIN ALFA 10,000 UNITS/ML VIAL SQ SCH (08:24)
[2018-11-25] MEDS: LINEZOLID 600 MG/ISO-OSM 300 ML IV SCH ×2 (08:25→22:05)
[2018-11-25] MEDS: PARICALCITOL 5 MCG/1 ML VIAL IVP SCH (08:26)
[2018-11-25] MEDS: MORPHINE SULFATE 2 MG/ML SYRINGE IVP PRN (08:45)
[2018-11-25] MEDS ORDERED: IOVERSOL 350 MG/ML 100 ML VIAL ONE (11:00)
[2018-11-25] MEDS ORDERED: SODIUM CHLORIDE 0.9% 100 ML ONE (11:01)
[2018-11-25 11:22] VITALS: BP 146/75
[2018-11-25 15:40] VITALS: BP 154/84
[2018-11-25 17:40] LABS: HEMATOCRIT 25.8 % (41-53); HEMOGLOBIN 8.1 g/dL (13.5-17.5)
[2018-11-25 19:22] VITALS: BP 146/74
[2018-11-25] MEDS: MEROPENEM 500 MG in SODIUM CHLORIDE 0.9% 50 ML IV SCH (20:32)
[2018-11-25 23:36] VITALS: BP 145/81
[2018-11-26] VITALS (7 sets, daily range): BP systolic 137–173; BP diastolic 75–92
[2018-11-26] MEDS: ACETAMINOPHEN 325 MG TABLET PO PRN ×2 (00:12→17:29)
[2018-11-26 06:21] LABS: EOSINOPHILS % (AUTO) 4.8 % (1.0-6.0); HEMATOCRIT 26.4 % (41-53); HEMOGLOBIN 8.4 g/dL (13.5-17.5); LYMPHOCYTES # (AUTO) 1.3 K/uL (1.0-4.8); LYMPHOCYTES % (AUTO) 12.7 % (22.0-44.0); MEAN CORPUSCULAR HEMOGLOBIN 27.8 pg (26.0-34.0); MEAN CORPUSCULAR HGB CONC 31.8 G/dL (31.0-37.0); MEAN CORPUSCULAR VOLUME 88 fL (80-100); MONOCYTES % (AUTO) 9.6 % (2.0-9.0); NEUTROPHILS # (AUTO) 7.7 K/uL (1.8-7.7); NEUTROPHILS % (AUTO) 71.9 % (40.0-70.0); PLATELET COUNT (AUTO) 482 K/uL (150-450); RED BLOOD CELL COUNT(AUTO) 3.02 MIL/uL (4.50-5.90); RED CELL DISTRIBUTION WIDTH 22.8 % (11.5-14.5)
[2018-11-26 06:36] LABS: ALBUMIN 2.4 g/dL (3.4-5.0); BILIRUBIN,TOTAL 0.2 mg/dL (0.1-1.0); CALCIUM, TOTAL 9.3 mg/dL (8.8-10.5); CREATININE 4.54 mg/dL (0.60-1.30); POTASSIUM 4.3 mmol/L (3.5-5.1); TOTAL PROTEIN, SERUM 6.6 g/dL (6.4-8.2)
[2018-11-26] MEDS: VITAMIN B COMP/VIT C/FOLIC ACID CAPSULE PO SCH (08:15)
[2018-11-26] MEDS: DOCUSATE SODIUM 100 MG CAPSULE PO SCH ×2 (08:15→20:10)
[2018-11-26] MEDS: FAMOTIDINE 20 MG TABLET PO SCH (08:16)
[2018-11-26] MEDS: LINEZOLID 600 MG/ISO-OSM 300 ML IV SCH ×2 (09:30→22:00)
[2018-11-26] MEDS: IRON SUCROSE COMPLEX 200 MG in SODIUM CHLORIDE 0.9% 100 ML IV SCH (12:03)
[2018-11-26] MEDS: MORPHINE SULFATE 2 MG/ML SYRINGE IVP PRN ×2 (12:40→20:56)
[2018-11-26 18:40] LABS: PHOSPHORUS 2.7 mg/dL (2.5-4.9)
[2018-11-26] MEDS: MEROPENEM 500 MG in SODIUM CHLORIDE 0.9% 50 ML IV SCH (20:21)
[2018-11-27 04:24] VITALS: BP 144/71
[2018-11-27 06:44] LABS: BASOPHILS % (AUTO) 0.6 % (0.0-2.0); EOSINOPHILS % (AUTO) 4.1 % (1.0-6.0); HEMATOCRIT 23.6 % (41-53); HEMOGLOBIN 7.5 g/dL (13.5-17.5); LYMPHOCYTES # (AUTO) 1.2 K/uL (1.0-4.8); LYMPHOCYTES % (AUTO) 10.8 % (22.0-44.0); MEAN CORPUSCULAR HEMOGLOBIN 27.7 pg (26.0-34.0); MEAN CORPUSCULAR HGB CONC 31.7 G/dL (31.0-37.0); MEAN CORPUSCULAR VOLUME 87 fL (80-100); MONOCYTES # (AUTO) 1.2 K/uL (0.1-1.0); MONOCYTES % (AUTO) 10.8 % (2.0-9.0); NEUTROPHILS # (AUTO) 8.4 K/uL (1.8-7.7); NEUTROPHILS % (AUTO) 73.7 % (40.0-70.0); PLATELET COUNT (AUTO) 487 K/uL (150-450); RED BLOOD CELL COUNT(AUTO) 2.71 MIL/uL (4.50-5.90); RED CELL DISTRIBUTION WIDTH 22.6 % (11.5-14.5)
[2018-11-27 07:08] LABS: CALCIUM, TOTAL 9.4 mg/dL (8.8-10.5); CREATININE 6.82 mg/dL (0.60-1.30); POTASSIUM 4.4 mmol/L (3.5-5.1)
[2018-11-27] MEDS: EPOETIN ALFA 10,000 UNITS/ML VIAL SQ SCH (11:31)
[2018-11-27] MEDS: PARICALCITOL 5 MCG/1 ML VIAL IVP SCH (11:32)
[2018-11-27] MEDS: DOCUSATE SODIUM 100 MG CAPSULE PO SCH ×2 (11:33→20:25)
[2018-11-27] MEDS: LINEZOLID 600 MG/ISO-OSM 300 ML IV SCH ×2 (11:33→21:20)
[2018-11-27] MEDS: FAMOTIDINE 20 MG TABLET PO SCH (11:33)
[2018-11-27] MEDS: VITAMIN B COMP/VIT C/FOLIC ACID CAPSULE PO SCH (11:33)
[2018-11-27 11:58] VITALS: BP 129/70
[2018-11-27] MEDS: IRON SUCROSE COMPLEX 200 MG in SODIUM CHLORIDE 0.9% 100 ML IV SCH (12:47)
[2018-11-27 16:20] VITALS: BP 132/78
[2018-11-27 20:01] VITALS: BP 149/76
[2018-11-27] MEDS: ACETAMINOPHEN 325 MG TABLET PO PRN (20:25)
[2018-11-27] MEDS: MEROPENEM 500 MG in SODIUM CHLORIDE 0.9% 50 ML IV SCH (20:25)
[2018-11-27 23:38] VITALS: BP 145/74
[2018-11-28 04:10] VITALS: BP 155/86
[2018-11-28 06:12] LABS: EOSINOPHILS % (AUTO) 4.3 % (1.0-6.0); HEMATOCRIT 24.8 % (41-53); HEMOGLOBIN 7.9 g/dL (13.5-17.5); LYMPHOCYTES # (AUTO) 1.4 K/uL (1.0-4.8); LYMPHOCYTES % (AUTO) 13.7 % (22.0-44.0); MEAN CORPUSCULAR HEMOGLOBIN 28.1 pg (26.0-34.0); MEAN CORPUSCULAR HGB CONC 31.8 G/dL (31.0-37.0); MEAN CORPUSCULAR VOLUME 88 fL (80-100); MONOCYTES # (AUTO) 1.2 K/uL (0.1-1.0); MONOCYTES % (AUTO) 11.6 % (2.0-9.0); NEUTROPHILS # (AUTO) 7.2 K/uL (1.8-7.7); NEUTROPHILS % (AUTO) 69.4 % (40.0-70.0); PLATELET COUNT (AUTO) 476 K/uL (150-450); RED BLOOD CELL COUNT(AUTO) 2.81 MIL/uL (4.50-5.90); RED CELL DISTRIBUTION WIDTH 22.6 % (11.5-14.5)
[2018-11-28 08:31] VITALS: BP 170/74
[2018-11-28] MEDS: ACETAMINOPHEN 325 MG TABLET PO PRN (08:45)
[2018-11-28] MEDS: MORPHINE SULFATE 2 MG/ML SYRINGE IVP PRN ×2 (08:46→18:53)
[2018-11-28] MEDS: VITAMIN B COMP/VIT C/FOLIC ACID CAPSULE PO SCH (08:46)
[2018-11-28] MEDS: DOCUSATE SODIUM 100 MG CAPSULE PO SCH ×3 (08:46→21:29)
[2018-11-28] MEDS: FAMOTIDINE 20 MG TABLET PO SCH (08:46)
[2018-11-28] MEDS: LINEZOLID 600 MG/ISO-OSM 300 ML IV SCH ×2 (10:48→22:00)
[2018-11-28 11:30] VITALS: BP 150/81
[2018-11-28] MEDS: IRON SUCROSE COMPLEX 200 MG in SODIUM CHLORIDE 0.9% 100 ML IV SCH (12:59)
[2018-11-28 16:23] VITALS: BP 137/76
[2018-11-28 20:14] VITALS: BP 142/71
[2018-11-28] MEDS: MEROPENEM 500 MG in SODIUM CHLORIDE 0.9% 50 ML IV SCH (20:27)
[2018-11-28 23:59] VITALS: BP 148/79
[2018-11-29 03:12] VITALS: BP 144/77
[2018-11-29 06:56] LABS: BASOPHILS % (AUTO) 0.6 % (0.0-2.0); EOSINOPHILS % (AUTO) 3.2 % (1.0-6.0); HEMATOCRIT 27.4 % (41-53); HEMOGLOBIN 8.6 g/dL (13.5-17.5); LYMPHOCYTES # (AUTO) 1.3 K/uL (1.0-4.8); LYMPHOCYTES % (AUTO) 9.4 % (22.0-44.0); MEAN CORPUSCULAR HEMOGLOBIN 27.8 pg (26.0-34.0); MEAN CORPUSCULAR HGB CONC 31.3 G/dL (31.0-37.0); MEAN CORPUSCULAR VOLUME 89 fL (80-100); MONOCYTES # (AUTO) 1.6 K/uL (0.1-1.0); MONOCYTES % (AUTO) 11.7 % (2.0-9.0); NEUTROPHILS # (AUTO) 10.5 K/uL (1.8-7.7); NEUTROPHILS % (AUTO) 75.1 % (40.0-70.0); PLATELET COUNT (AUTO) 504 K/uL (150-450); RED BLOOD CELL COUNT(AUTO) 3.08 MIL/uL (4.50-5.90); RED CELL DISTRIBUTION WIDTH 22.7 % (11.5-14.5)
[2018-11-29 06:57] LABS: CALCIUM, TOTAL 9.5 mg/dL (8.8-10.5); CREATININE 7.18 mg/dL (0.60-1.30); POTASSIUM 4.5 mmol/L (3.5-5.1)
[2018-11-29 07:08] VITALS: BP 133/72
[2018-11-29] MEDS: VITAMIN B COMP/VIT C/FOLIC ACID CAPSULE PO SCH (09:25)
[2018-11-29] MEDS: DOCUSATE SODIUM 100 MG CAPSULE PO SCH ×2 (09:26→20:25)
[2018-11-29] MEDS: ACETAMINOPHEN 325 MG TABLET PO PRN (09:26)
[2018-11-29] MEDS: FAMOTIDINE 20 MG TABLET PO SCH (09:26)
[2018-11-29 12:00] VITALS: BP 142/70
[2018-11-29] MEDS: IRON SUCROSE COMPLEX 200 MG in SODIUM CHLORIDE 0.9% 100 ML IV SCH (12:19)
[2018-11-29] MEDS: LINEZOLID 600 MG/ISO-OSM 300 ML IV SCH ×2 (12:40→22:00)
[2018-11-29 15:38] VITALS: BP 153/77
[2018-11-29] MEDS ORDERED: IOVERSOL 320 MG/ML 100 ML VIAL ONE (17:30)
[2018-11-29 20:00] VITALS: BP 159/74
[2018-11-29] MEDS: MEROPENEM 500 MG in SODIUM CHLORIDE 0.9% 50 ML IV SCH (20:26)
[2018-11-29 23:43] VITALS: BP 147/86
[2018-11-30] MEDS: ACETAMINOPHEN 325 MG TABLET PO PRN ×2 (01:16→09:19)
[2018-11-30 04:44] VITALS: BP 153/84
[2018-11-30 05:59] LABS: BASOPHILS % (AUTO) 0.5 % (0.0-2.0); EOSINOPHILS % (AUTO) 3.9 % (1.0-6.0); HEMATOCRIT 25.3 % (41-53); HEMOGLOBIN 8.1 g/dL (13.5-17.5); LYMPHOCYTES # (AUTO) 1.5 K/uL (1.0-4.8); LYMPHOCYTES % (AUTO) 11.4 % (22.0-44.0); MEAN CORPUSCULAR HEMOGLOBIN 28.2 pg (26.0-34.0); MEAN CORPUSCULAR VOLUME 88 fL (80-100); MONOCYTES # (AUTO) 1.4 K/uL (0.1-1.0); MONOCYTES % (AUTO) 10.7 % (2.0-9.0); NEUTROPHILS # (AUTO) 9.5 K/uL (1.8-7.7); NEUTROPHILS % (AUTO) 73.5 % (40.0-70.0); PLATELET COUNT (AUTO) 478 K/uL (150-450); RED BLOOD CELL COUNT(AUTO) 2.88 MIL/uL (4.50-5.90)
[2018-11-30 06:11] LABS: CALCIUM, TOTAL 9.4 mg/dL (8.8-10.5); CREATININE 8.84 mg/dL (0.60-1.30); POTASSIUM 5.3 mmol/L (3.5-5.1)
[2018-11-30 07:00] VITALS: BP 163/86
[2018-11-30 07:27] LABS: PLATELET MORPHOLOGY COMMENT LARGE PLTS PRESENT
[2018-11-30] MEDS: PARICALCITOL 5 MCG/1 ML VIAL IVP SCH (08:40)
[2018-11-30] MEDS: FAMOTIDINE 20 MG TABLET PO SCH (08:40)
[2018-11-30] MEDS: VITAMIN B COMP/VIT C/FOLIC ACID CAPSULE PO SCH (08:40)
[2018-11-30] MEDS: DOCUSATE SODIUM 100 MG CAPSULE PO SCH ×2 (08:40→20:24)
[2018-11-30] MEDS: EPOETIN ALFA 10,000 UNITS/ML VIAL SQ SCH (08:42)
[2018-11-30] MEDS: MORPHINE SULFATE 2 MG/ML SYRINGE IVP PRN (08:51)
[2018-11-30] MEDS ORDERED: SODIUM CHLORIDE 0.9% 2,000 ML IV ONE (10:23)
[2018-11-30 12:00] VITALS: BP 154/82
[2018-11-30 12:36] LABS: C-REACTIVE PROTEIN QUANT 14.2 mg/dL (0.00-0.30)
[2018-11-30] MEDS: LINEZOLID 600 MG/ISO-OSM 300 ML IV SCH ×2 (12:54→22:05)
[2018-11-30 16:28] VITALS: BP 150/78
[2018-11-30] MEDS: IRON SUCROSE COMPLEX 200 MG in SODIUM CHLORIDE 0.9% 100 ML IV SCH (17:50)
[2018-11-30 19:31] VITALS: BP 151/79
[2018-11-30] MEDS: MEROPENEM 500 MG in SODIUM CHLORIDE 0.9% 50 ML IV SCH (20:25)
[2018-11-30] MEDS ORDERED: SODIUM CHLORIDE 0.9% 100 ML ONE (20:26)
[2018-11-30] MEDS ORDERED: INDIUM IN-111 OXYQUINOLINE/.5MCL ISOTOPE 1 EA INJ INJ ONE (20:35)
[2018-11-30 23:02] VITALS: BP 147/83
[2018-12-01 04:25] VITALS: BP 144/74
[2018-12-01 06:09] LABS: BASOPHILS % (AUTO) 0.5 % (0.0-2.0); EOSINOPHILS % (AUTO) 1.6 % (1.0-6.0); HEMATOCRIT 23.6 % (41-53); HEMOGLOBIN 7.4 g/dL (13.5-17.5); LYMPHOCYTES # (AUTO) 1.3 K/uL (1.0-4.8); LYMPHOCYTES % (AUTO) 9.8 % (22.0-44.0); MEAN CORPUSCULAR HEMOGLOBIN 27.6 pg (26.0-34.0); MEAN CORPUSCULAR HGB CONC 31.2 G/dL (31.0-37.0); MEAN CORPUSCULAR VOLUME 89 fL (80-100); MONOCYTES # (AUTO) 1.8 K/uL (0.1-1.0); MONOCYTES % (AUTO) 13.1 % (2.0-9.0); NEUTROPHILS # (AUTO) 10.2 K/uL (1.8-7.7); PLATELET COUNT (AUTO) 501 K/uL (150-450); RED BLOOD CELL COUNT(AUTO) 2.67 MIL/uL (4.50-5.90); RED CELL DISTRIBUTION WIDTH 24.1 % (11.5-14.5)
[2018-12-01 06:24] LABS: CALCIUM, TOTAL 9.4 mg/dL (8.8-10.5); POTASSIUM 4.9 mmol/L (3.5-5.1)
[2018-12-01 07:05] VITALS: BP 157/69
[2018-12-01] MEDS: FAMOTIDINE 20 MG TABLET PO SCH (08:05)
[2018-12-01] MEDS: VITAMIN B COMP/VIT C/FOLIC ACID CAPSULE PO SCH (08:05)
[2018-12-01] MEDS: LINEZOLID 600 MG/ISO-OSM 300 ML IV SCH ×2 (08:06→23:31)
[2018-12-01] MEDS: DOCUSATE SODIUM 100 MG CAPSULE PO SCH ×2 (08:14→22:12)
[2018-12-01 11:18] VITALS: BP 155/81
[2018-12-01 15:54] VITALS: BP 151/78
[2018-12-01 20:02] VITALS: BP 152/80
[2018-12-01] MEDS ORDERED: HEPARIN SODIUM,PORCINE 5,000 UNITS/ML VIAL SQ SCH (21:00)
[2018-12-01] MEDS: MEROPENEM 500 MG in SODIUM CHLORIDE 0.9% 50 ML IV SCH (22:12)
[2018-12-01] MEDS ORDERED: SODIUM CHLORIDE 0.9% 250 ML IV ONE (23:19)
[2018-12-02 00:21] VITALS: BP 161/85
[2018-12-02 03:57] VITALS: BP 155/68
[2018-12-02] MEDS ORDERED: SODIUM CHLORIDE 0.9% 1,000 ML IV ONE (07:36)
[2018-12-02] MEDS: DOCUSATE SODIUM 100 MG CAPSULE PO SCH (09:00)
[2018-12-02] MEDS: LINEZOLID 600 MG/ISO-OSM 300 ML IV SCH (11:40)
[2018-12-02] MEDS: EPOETIN ALFA 10,000 UNITS/ML VIAL SQ SCH (11:41)
[2018-12-02] MEDS: PARICALCITOL 5 MCG/1 ML VIAL IVP SCH (11:42)
[2018-12-02] MEDS: FAMOTIDINE 20 MG TABLET PO SCH (11:42)
[2018-12-02] MEDS: VITAMIN B COMP/VIT C/FOLIC ACID CAPSULE PO SCH (11:42)
[2018-12-02 16:06] VITALS: BP 146/78
[2018-12-02] MEDS: ACETAMINOPHEN 325 MG TABLET PO PRN (16:47)
== END 2018-12-02 17:15 | DRG 564 ==
LOC: EMS 17:49 → 5S 20:47
PROVIDERS: ADMIT Internal Medicine; ATTEND Internal Medicine
PROC: 5A1D70Z Performance of Urinary Filtration, Intermittent, Less than 6 Hours Per Day (ICD-10-PCS; principal; 2018-11-24)
PROC: 5A1D70Z Performance of Urinary Filtration, Intermittent, Less than 6 Hours Per Day (ICD-10-PCS; 2018-11-25)
PROC: 5A1D70Z Performance of Urinary Filtration, Intermittent, Less than 6 Hours Per Day (ICD-10-PCS; 2018-11-27)
PROC: 5A1D70Z Performance of Urinary Filtration, Intermittent, Less than 6 Hours Per Day (ICD-10-PCS; 2018-11-30)
PROC: 5A1D70Z Performance of Urinary Filtration, Intermittent, Less than 6 Hours Per Day (ICD-10-PCS; 2018-12-02)
DX: T87.44 Infection of amputation stump, left lower extremity (principal); A41.9 Sepsis, unspecified organism; N18.6 End stage renal disease; G92 Toxic encephalopathy; R65.20 Severe sepsis without septic shock; R64 Cachexia; E44.0 Moderate protein-calorie malnutrition; I13.11 Hypertensive heart and chronic kidney disease without heart failure, with stage 5 chronic kidney disease, or end stage renal disease; E87.1 Hypo-osmolality and hyponatremia; E11.52 Type 2 diabetes mellitus with diabetic peripheral angiopathy with gangrene; S37.012A Minor contusion of left kidney, initial encounter; N25.81 Secondary hyperparathyroidism of renal origin; E87.5 Hyperkalemia; I25.10 Atherosclerotic heart disease of native coronary artery without angina pectoris; D63.8 Anemia in other chronic diseases classified elsewhere; E11.40 Type 2 diabetes mellitus with diabetic neuropathy, unspecified; E83.51 Hypocalcemia; E83.39 Other disorders of phosphorus metabolism; R62.7 Adult failure to thrive; T40.601A Poisoning by unspecified narcotics, accidental (unintentional), initial encounter; E11.22 Type 2 diabetes mellitus with diabetic chronic kidney disease; R58 Hemorrhage, not elsewhere classified; D50.9 Iron deficiency anemia, unspecified; Y83.5 Amputation of limb(s) as the cause of abnormal reaction of the patient, or of later complication, without mention of misadventure at the time of the procedure; Z89.612 Acquired absence of left leg above knee; Z99.2 Dependence on renal dialysis; Y92.89 Other specified places as the place of occurrence of the external cause; Z68.23 Body mass index [BMI] 23.0-23.9, adult
CPT/HCPCS: 70450; 71250; 73701; 73718; 74178; 78806; 82270; 82728; 83540; 83550; 83605; 83735; 84100; 84145; 84439; 84443; 85014; 85018; 86140; 86850; 86900; 86901; 87040; 87081; 87340; 87804; 93005; 99291; A9547; G0480; J0131; J0610; J0696; J0885; J1644; J1756; J1815; J2020; J2060; J2185; J2270; J2310; J2501; J2543; J3490; J7030; J7050

== ENCOUNTER 2019-01-28 17:25 | Inpatient (IN) | payer MEDICARE, MEDICAID ==
[~2019-01-28] VITALS: Ht 167.6 cm; Wt 60.9 kg
[~2019-01-28 17:25] MED LIST changes: -AMLO10TA7 PO; +ATOR40TA28 PO; +CLOP75TA3 PO; +GABA-533 PO; -METR500 IV; +NIFE30TA98 PO; +PERCT10 PO; +SEVE800T17 PO; -VANC1IV IV; -[UNRECOGNIZED DRUG - CODE] IV
[2019-01-28] MEDS ORDERED: PARI5VIA IVP (18:32)
[2019-01-28] MEDS ORDERED: FAMO20 PO (18:32)
[2019-01-28] MEDS ORDERED: EPOE20002 SQ (18:32)
[2019-01-28] MEDS ORDERED: SEVE800T17 PO (18:32)
[2019-01-28] MEDS ORDERED: INSU100V SQ (18:32)
[2019-01-28] MEDS ORDERED: GABA-529 PO (18:42)
[2019-01-28] MEDS ORDERED: CALCIUM GLUCONATE 2,000 MG in DEXTROSE 5%-WATER 50 ML IV ONE ×2 (18:45→19:45)
[2019-01-28 18:47] LABS: EOSINOPHILS % (AUTO) 1.5 % (1.0-6.0); HEMOGLOBIN 13.1 g/dL (13.5-17.5); LYMPHOCYTES # (AUTO) 1.2 K/uL (1.0-4.8); LYMPHOCYTES % (AUTO) 17.3 % (22.0-44.0); MEAN CORPUSCULAR HEMOGLOBIN 26.8 pg (26.0-34.0); MEAN CORPUSCULAR HGB CONC 31.8 G/dL (31.0-37.0); MEAN CORPUSCULAR VOLUME 84 fL (80-100); MONOCYTES # (AUTO) 0.8 K/uL (0.1-1.0); MONOCYTES % (AUTO) 11.3 % (2.0-9.0); NEUTROPHILS # (AUTO) 4.8 K/uL (1.8-7.7); NEUTROPHILS % (AUTO) 68.9 % (40.0-70.0); PLATELET COUNT (AUTO) 298 K/uL (150-450); RED BLOOD CELL COUNT(AUTO) 4.87 MIL/uL (4.50-5.90); RED CELL DISTRIBUTION WIDTH 20.8 % (11.5-14.5)
[2019-01-28 18:58] LABS: PROTHROMBIN TIME 10.5 SEC (9.4-11.6)
[2019-01-28 19:16] LABS: ALBUMIN 3.8 g/dL (3.4-5.0); BILIRUBIN,TOTAL 0.3 mg/dL (0.1-1.0); CALCIUM, TOTAL 8.2 mg/dL (8.8-10.5); TOTAL PROTEIN, SERUM 8.6 g/dL (6.4-8.2)
[2019-01-28 19:22] LABS: POTASSIUM 6.3 mmol/L (3.5-5.1)
[2019-01-28] MEDS ORDERED: DEXTROSE 50%-WATER 25 GM/50 ML SYRINGE IVP ONE (19:45)
[2019-01-28] MEDS ORDERED: INSULIN REGULAR, HUMAN 100 UNITS/ML IVP ONE (19:45)
[2019-01-28] MEDS ORDERED: ONDANSETRON HCL 4 MG/2 ML VIAL IVP PRN (20:15)
[2019-01-28] MEDS ORDERED: 0.9% SODIUM CHLORIDE 10 ML SYRINGE IVP PRN (20:15)
[2019-01-28] MEDS ORDERED: BISACODYL 10 MG RECTAL RECTAL SUPPOSITORY PR PRN (20:15)
[2019-01-28] MEDS ORDERED: ACETAMINOPHEN 325 MG TABLET PO PRN ×2 (20:15)
[2019-01-28] MEDS ORDERED: DEXTROSE 50%-WATER 25 GM/50 ML SYRINGE IVP PRN (20:15)
[2019-01-28] MEDS ORDERED: INSULIN LISPRO 100 UNITS/ML SQ PRN (20:15)
[2019-01-28] MEDS ORDERED: CloNIDine HCL 0.1 MG TABLET PO PRN (20:15)
[2019-01-28] MEDS ORDERED: LORazepam 2 MG/ML VIAL IVP PRN (21:30)
[2019-01-28 21:45] VITALS: BP 145/78
[2019-01-28 21:46] LABS: GLUCOSE,POINT OF CARE 96 MG/DL (70-110)
[2019-01-28] MEDS: DOCUSATE SODIUM 100 MG CAPSULE PO SCH (21:56)
[2019-01-28] MEDS: HEPARIN SODIUM,PORCINE 5,000 UNITS/ML VIAL SQ SCH (21:57)
[2019-01-29 00:12] LABS: GLUCOMETER DEV NAME(LOC) 5S.1; GLUCOSE,POINT OF CARE 58 MG/DL (70-110)
[2019-01-29 00:12] LABS: GLUCOMETER DEV NAME(LOC) 5S.1; GLUCOSE,POINT OF CARE 112 MG/DL (70-110)
[2019-01-29 00:45] VITALS: BP 116/72
[2019-01-29 04:56] VITALS: BP 123/78
[2019-01-29 07:50] LABS: GLUCOMETER DEV NAME(LOC) 5N.2; GLUCOSE,POINT OF CARE 96 MG/DL (70-110)
[2019-01-29 08:24] VITALS: BP 142/79
[2019-01-29] MEDS: HEPARIN SODIUM,PORCINE 5,000 UNITS/ML VIAL SQ SCH ×2 (08:45→20:01)
[2019-01-29] MEDS: AmLODIPine BESYLATE 5 MG TABLET PO SCH (08:47)
[2019-01-29] MEDS: ASPIRIN 81 MG CHEWABLE TABLET PO SCH (08:47)
[2019-01-29] MEDS: ATORVASTATIN CALCIUM 20 MG TABLET PO SCH (08:47)
[2019-01-29] MEDS: FAMOTIDINE 20 MG TABLET PO SCH (08:47)
[2019-01-29] MEDS: DOCUSATE SODIUM 100 MG CAPSULE PO SCH ×2 (08:53→20:00)
[2019-01-29 10:29] LABS: CREATININE 7.9 mg/dL (0.60-1.30); POTASSIUM 4.9 mmol/L (3.5-5.1)
[2019-01-29 11:51] VITALS: BP 143/74
[2019-01-29] MEDS ORDERED: SODIUM CHLORIDE 0.9% 1,000 ML IV ONE (14:16)
[2019-01-29 16:19] VITALS: BP 141/87
[2019-01-29 19:30] LABS: GLUCOMETER DEV NAME(LOC) 5N.1; GLUCOSE,POINT OF CARE 86 MG/DL (70-110)
[2019-01-29 20:57] VITALS: BP 135/70
[2019-01-30] VITALS (7 sets, daily range): BP systolic 127–157; BP diastolic 58–83
[2019-01-30 03:55] LABS: GLUCOMETER DEV NAME(LOC) 5N.2; GLUCOSE,POINT OF CARE 119 MG/DL (70-110)
[2019-01-30 06:51] LABS: GLUCOMETER DEV NAME(LOC) 5N.2; GLUCOSE,POINT OF CARE 84 MG/DL (70-110)
[2019-01-30 07:59] LABS: CALCIUM, TOTAL 7.9 mg/dL (8.8-10.5); CREATININE 5.91 mg/dL (0.60-1.30); POTASSIUM 4.4 mmol/L (3.5-5.1)
[2019-01-30] MEDS: DOCUSATE SODIUM 100 MG CAPSULE PO SCH ×2 (08:11→21:00)
[2019-01-30] MEDS: HEPARIN SODIUM,PORCINE 5,000 UNITS/ML VIAL SQ SCH ×2 (08:11→21:00)
[2019-01-30] MEDS: AmLODIPine BESYLATE 5 MG TABLET PO SCH (08:12)
[2019-01-30] MEDS: FAMOTIDINE 20 MG TABLET PO SCH (08:12)
[2019-01-30] MEDS: ATORVASTATIN CALCIUM 20 MG TABLET PO SCH (08:12)
[2019-01-30] MEDS: ASPIRIN 81 MG CHEWABLE TABLET PO SCH (08:12)
[2019-01-30 19:55] LABS: GLUCOMETER DEV NAME(LOC) 5S.2A; GLUCOSE,POINT OF CARE 143 MG/DL (70-110)
[2019-01-31 04:16] VITALS: BP 146/77
[2019-01-31 04:51] LABS: GLUCOMETER DEV NAME(LOC) 5N.2; GLUCOSE,POINT OF CARE 94 MG/DL (70-110)
[2019-01-31 04:51] LABS: GLUCOMETER DEV NAME(LOC) 5N.2; GLUCOSE,POINT OF CARE 85 MG/DL (70-110)
[2019-01-31 07:28] VITALS: BP 151/76
[2019-01-31 08:01] LABS: GLUCOMETER DEV NAME(LOC) 5S.1; GLUCOSE,POINT OF CARE 90 MG/DL (70-110)
[2019-01-31 08:01] LABS: GLUCOMETER DEV NAME(LOC) 5N.1; GLUCOSE,POINT OF CARE 75 MG/DL (70-110)
[2019-01-31] MEDS: ASPIRIN 81 MG CHEWABLE TABLET PO SCH (09:00)
[2019-01-31] MEDS: ATORVASTATIN CALCIUM 20 MG TABLET PO SCH (10:02)
[2019-01-31] MEDS: AmLODIPine BESYLATE 5 MG TABLET PO SCH (10:02)
[2019-01-31] MEDS: HEPARIN SODIUM,PORCINE 5,000 UNITS/ML VIAL SQ SCH (10:02)
[2019-01-31] MEDS: FAMOTIDINE 20 MG TABLET PO SCH (10:02)
[2019-01-31] MEDS: DOCUSATE SODIUM 100 MG CAPSULE PO SCH (10:02)
[2019-01-31 12:02] VITALS: BP 151/74
[2019-01-31 12:07] LABS: GLUCOMETER DEV NAME(LOC) 5N.1; GLUCOSE,POINT OF CARE 100 MG/DL (70-110)
[2019-01-31 15:49] VITALS: BP 145/88
[2019-02-01] MEDS ORDERED: AmLODIPine BESYLATE 10 MG TABLET PO SCH (09:00)
== END 2019-01-31 17:00 | DRG 640 ==
LOC: EMS 17:25 → 5S 20:30
PROVIDERS: ADMIT Internal Medicine; ATTEND Internal Medicine
PROC: 5A1D70Z Performance of Urinary Filtration, Intermittent, Less than 6 Hours Per Day (ICD-10-PCS; principal; 2019-01-28)
PROC: 5A1D70Z Performance of Urinary Filtration, Intermittent, Less than 6 Hours Per Day (ICD-10-PCS; 2019-01-29)
DX: E87.5 Hyperkalemia (principal); N18.6 End stage renal disease; M62.82 Rhabdomyolysis; N25.81 Secondary hyperparathyroidism of renal origin; E46 Unspecified protein-calorie malnutrition; R64 Cachexia; I13.11 Hypertensive heart and chronic kidney disease without heart failure, with stage 5 chronic kidney disease, or end stage renal disease; L03.116 Cellulitis of left lower limb; M86.9 Osteomyelitis, unspecified; I73.9 Peripheral vascular disease, unspecified; D64.9 Anemia, unspecified; E83.51 Hypocalcemia; E83.39 Other disorders of phosphorus metabolism; R62.7 Adult failure to thrive; E11.319 Type 2 diabetes mellitus with unspecified diabetic retinopathy without macular edema; E11.40 Type 2 diabetes mellitus with diabetic neuropathy, unspecified; F15.10 Other stimulant abuse, uncomplicated; E11.22 Type 2 diabetes mellitus with diabetic chronic kidney disease; E11.51 Type 2 diabetes mellitus with diabetic peripheral angiopathy without gangrene; E11.69 Type 2 diabetes mellitus with other specified complication; E87.1 Hypo-osmolality and hyponatremia; E87.2 Acidosis; I25.10 Atherosclerotic heart disease of native coronary artery without angina pectoris; Z79.4 Long term (current) use of insulin; Z91.19 Patient's noncompliance with other medical treatment and regimen; Z89.512 Acquired absence of left leg below knee; Z99.2 Dependence on renal dialysis; Z89.612 Acquired absence of left leg above knee; Z79.899 Other long term (current) drug therapy; Z79.82 Long term (current) use of aspirin
CPT/HCPCS: 87081; 87340; 93005; 93306; 99291; J0610; J1644; J1815; J2405; J7030; J7060

== ENCOUNTER 2021-11-04 12:38 | Inpatient (IN) | payer MEDICARE, OTHER ==
[~2021-11-04] VITALS: Ht 167.6 cm; Wt 57.3 kg
[~2021-11-04 12:38] MED LIST changes: +ASPI-1450 PO; -ASPI81 PO; -CLOP75TA3 PO; +CLOP75TA60 PO; +EPOE20002 SQ; +FAMO20 PO; +GABA-1216 PO; -GABA-533 PO; +INSU100V SQ; +OXYC-490 PO; +PARI5VIA IVP; -PERCT10 PO
[2021-11-04 14:50] LABS: BASOPHILS % (AUTO) 0.7 % (0.0-2.0); EOSINOPHILS % (AUTO) 1.6 % (1.0-6.0); HEMATOCRIT 29.2 % (41-53); HEMOGLOBIN 9.2 g/dL (13.5-17.5); LYMPHOCYTES # (AUTO) 0.9 K/uL (1.0-4.8); LYMPHOCYTES % (AUTO) 14.4 % (22.0-44.0); MEAN CORPUSCULAR HGB CONC 31.5 G/dL (31.0-37.0); MEAN CORPUSCULAR VOLUME 83 fL (80-100); MONOCYTES # (AUTO) 0.8 K/uL (0.1-1.0); MONOCYTES % (AUTO) 12.6 % (2.0-9.0); NEUTROPHILS # (AUTO) 4.4 K/uL (1.8-7.7); NEUTROPHILS % (AUTO) 70.7 % (40.0-70.0); PLATELET COUNT (AUTO) 479 K/uL (150-450); RED BLOOD CELL COUNT(AUTO) 3.54 MIL/uL (4.50-5.90); RED CELL DISTRIBUTION WIDTH 18.8 % (11.5-14.5)
[2021-11-04 15:14] LABS: ANION GAP 16 mmol/L (8-16); CALCIUM, TOTAL 9.1 mg/dL (8.8-10.5); CARBON DIOXIDE 29 mmol/L (22-29); CHLORIDE 98 mmol/L (98-107); GLUCOSE,RANDOM 113 mg/dL (70-110); POTASSIUM 5.6 mmol/L (3.5-5.1); SODIUM SERUM 143 mmol/L (136-145); UREA NITROGEN, BLOOD 69 mg/dL (7-18)
[2021-11-04 15:18] LABS: GLOMERULAR FILTR. RATE CALC 3 mL/min (>60)
[2021-11-04 15:20] LABS: AMMONIA 12 umol/L (11-32)
[2021-11-04 15:39] LABS: ALANINE AMINOTRANSFERASE 12 U/L (12-78); ALBUMIN 2.6 g/dL (3.4-5.0); ALKALINE PHOSPHATASE 137 U/L (46-116); ASPARTATE AMINOTRANSFERASE 20 U/L (15-37); BILIRUBIN,TOTAL 0.3 mg/dL (0.1-1.0); CREATINE KINASE, TOTAL ONLY 230 U/L (39-308); TOTAL PROTEIN, SERUM 7.3 g/dL (6.4-8.2)
[2021-11-04] MEDS ORDERED: ONDANSETRON HCL 4 MG/2 ML VIAL IVP PRN (15:45)
[2021-11-04] MEDS ORDERED: ACETAMINOPHEN 325 MG TABLET PO PRN (15:45)
[2021-11-04 15:50] LABS: COVID AG,FIA SOURCE NASOPHARYNGEAL
[2021-11-04] MEDS ORDERED: CHOL500013 PO (16:03)
[2021-11-04] MEDS ORDERED: NITR0.4T52 SL (16:03)
[2021-11-04] MEDS ORDERED: ACET-2247 PO (16:03)
[2021-11-04] MEDS ORDERED: CARV6 PO (16:03)
[2021-11-04] MEDS ORDERED: FERR325T23 PO (16:03)
[2021-11-04] MEDS ORDERED: DOCU-385 PO (16:03)
[2021-11-04] MEDS ORDERED: PANT-31 PO (16:03)
[2021-11-04] MEDS ORDERED: CINA30 PO (16:03)
[2021-11-04] MEDS ORDERED: LOSA-381 PO (16:03)
[2021-11-04] MEDS ORDERED: FOLI0.8T22 PO (16:03)
[2021-11-04 16:31] LABS: GLUCOSE,POINT OF CARE 134 MG/DL (70-110)
[2021-11-04 20:58] VITALS: BP 157/98
[2021-11-04] MEDS ORDERED: NITROGLYCERIN 0.4 MG SUBLINGUAL TABLET #25 SL PRN (22:15)
[2021-11-04 23:51] VITALS: BP 155/88
[2021-11-05] VITALS (10 sets, daily range): BP systolic 116–150; BP diastolic 76–96
[2021-11-05] MEDS: PANTOPRAZOLE SODIUM 40 MG DR TABLET PO SCH (08:59)
[2021-11-05] MEDS: GABAPENTIN 100 MG CAPSULE PO SCH ×2 (08:59→20:22)
[2021-11-05] MEDS: SEVELAMER CARBONATE 800 MG TABLET PO SCH ×3 (09:00→18:05)
[2021-11-05] MEDS: ASPIRIN 81 MG CHEWABLE TABLET PO SCH (09:00)
[2021-11-05] MEDS: LOSARTAN POTASSIUM 25 MG TABLET PO SCH ×2 (09:00→09:01)
[2021-11-05] MEDS: CARVEDILOL 6.25 MG TABLET PO SCH ×2 (09:00→20:22)
[2021-11-05] MEDS: DOCUSATE SODIUM 100 MG CAPSULE PO SCH ×4 (09:00→20:22)
[2021-11-05] MEDS: VITAMIN B COMP/VIT C/FOLIC ACID CAPSULE PO SCH (09:00)
[2021-11-05] MEDS: FERROUS SULFATE 325 MG EC TABLET PO SCH (09:01)
[2021-11-05] MEDS: CINACALCET HCL 30 MG TABLET PO SCH (11:49)
[2021-11-05] MEDS: CHOLECALCIFEROL (VIT D3) 5,000 [125 MCG] UNITS CAPSULE PO SCH (11:49)
[2021-11-05 12:21] LABS: BASOPHILS % (AUTO) 0.9 % (0.0-2.0); EOSINOPHILS % (AUTO) 2.2 % (1.0-6.0); HEMATOCRIT 30.8 % (41-53); HEMOGLOBIN 9.6 g/dL (13.5-17.5); LYMPHOCYTES % (AUTO) 14.9 % (22.0-44.0); MEAN CORPUSCULAR HEMOGLOBIN 25.9 pg (26.0-34.0); MEAN CORPUSCULAR HGB CONC 31.2 G/dL (31.0-37.0); MEAN CORPUSCULAR VOLUME 83 fL (80-100); MONOCYTES # (AUTO) 0.7 K/uL (0.1-1.0); MONOCYTES % (AUTO) 10.7 % (2.0-9.0); NEUTROPHILS # (AUTO) 4.8 K/uL (1.8-7.7); NEUTROPHILS % (AUTO) 71.3 % (40.0-70.0); PLATELET COUNT (AUTO) 497 K/uL (150-450); RED BLOOD CELL COUNT(AUTO) 3.71 MIL/uL (4.50-5.90); RED CELL DISTRIBUTION WIDTH 18.8 % (11.5-14.5)
[2021-11-05 12:34] LABS: CALCIUM, TOTAL 9.2 mg/dL (8.8-10.5); POTASSIUM 5.7 mmol/L (3.5-5.1)
[2021-11-05 12:40] LABS: CREATININE 21.5 mg/dL (0.60-1.30)
[2021-11-05 12:59] LABS: ALBUMIN 2.4 g/dL (3.4-5.0); BILIRUBIN,TOTAL 0.4 mg/dL (0.1-1.0)
[2021-11-05] MEDS ORDERED: ATORVASTATIN CALCIUM 40 MG TABLET PO SCH (21:00)
[2021-11-06] VITALS (8 sets, daily range): BP systolic 92–119; BP diastolic 59–79
[2021-11-06] MEDS: DOCUSATE SODIUM 100 MG CAPSULE PO SCH ×2 (08:41→18:09)
[2021-11-06] MEDS: PANTOPRAZOLE SODIUM 40 MG DR TABLET PO SCH (08:41)
[2021-11-06] MEDS: GABAPENTIN 100 MG CAPSULE PO SCH (08:41)
[2021-11-06] MEDS: CARVEDILOL 6.25 MG TABLET PO SCH (08:41)
[2021-11-06] MEDS: CINACALCET HCL 30 MG TABLET PO SCH (08:41)
[2021-11-06] MEDS: CHOLECALCIFEROL (VIT D3) 5,000 [125 MCG] UNITS CAPSULE PO SCH (08:41)
[2021-11-06] MEDS: SEVELAMER CARBONATE 800 MG TABLET PO SCH ×3 (08:41→18:09)
[2021-11-06] MEDS: FERROUS SULFATE 325 MG EC TABLET PO SCH (08:41)
[2021-11-06] MEDS: LOSARTAN POTASSIUM 25 MG TABLET PO SCH (08:41)
[2021-11-06] MEDS: VITAMIN B COMP/VIT C/FOLIC ACID CAPSULE PO SCH (08:41)
[2021-11-06] MEDS: ASPIRIN 81 MG CHEWABLE TABLET PO SCH (08:42)
[2021-11-06] MEDS ORDERED: PARICALCITOL 1 MCG CAPSULE PO SCH (09:00)
[2021-11-06] MEDS ORDERED: SODIUM ZIRCONIUM CYCLOSILICATE 5 GM POWDER PACKET PO SCH (09:00)
[2021-11-06] MEDS ORDERED: SODI5POW3 PO (15:28)
[2021-11-06] MEDS ORDERED: PARI1CAP PO (15:28)
[2021-11-07] MEDS ORDERED: EPOETIN ALFA 10,000 UNITS/ML VIAL SQ SCH (09:00)
== END 2021-11-06 19:55 | disposition home or self-care (01) | DRG 640 ==
LOC: EMS 12:38 → 5S 18:42
PROVIDERS: ADMIT Hospitalist; ATTEND Hospitalist
PROC: 5A1D70Z Performance of Urinary Filtration, Intermittent, Less than 6 Hours Per Day (ICD-10-PCS; principal; 2021-11-05)
DX: E87.5 Hyperkalemia (principal); N18.6 End stage renal disease; E46 Unspecified protein-calorie malnutrition; G93.40 Encephalopathy, unspecified; I13.11 Hypertensive heart and chronic kidney disease without heart failure, with stage 5 chronic kidney disease, or end stage renal disease; N25.81 Secondary hyperparathyroidism of renal origin; E11.40 Type 2 diabetes mellitus with diabetic neuropathy, unspecified; E11.65 Type 2 diabetes mellitus with hyperglycemia; E83.39 Other disorders of phosphorus metabolism; Z20.822 Contact with and (suspected) exposure to COVID-19; E83.51 Hypocalcemia; E11.319 Type 2 diabetes mellitus with unspecified diabetic retinopathy without macular edema; D63.1 Anemia in chronic kidney disease; R62.7 Adult failure to thrive; E87.1 Hypo-osmolality and hyponatremia; K31.9 Disease of stomach and duodenum, unspecified; E88.09 Other disorders of plasma-protein metabolism, not elsewhere classified; E11.22 Type 2 diabetes mellitus with diabetic chronic kidney disease; Z91.19 Patient's noncompliance with other medical treatment and regimen; Z99.2 Dependence on renal dialysis; Z89.512 Acquired absence of left leg below knee; Z82.49 Family history of ischemic heart disease and other diseases of the circulatory system; Z83.3 Family history of diabetes mellitus; Z91.15 Patient's noncompliance with renal dialysis; Z68.20 Body mass index [BMI] 20.0-20.9, adult; Z79.899 Other long term (current) drug therapy
CPT/HCPCS: 70450; 71045; 80053; 82140; 82550; 82962; 84484; 85025; 87081; 87340; 93005; 99291; G0378; G0480; J0885; Q9967; 36415-L1; 36415-TC

== ENCOUNTER → 2022-05-14 | Outpatient (CLI) | payer MEDICARE, OTHER ==
[~2022-05-14] MED LIST changes: +ACET-2247 PO; +CARV6 PO; +CHOL500013 PO; +CINA30 PO; -CLOP75TA60 PO; +DOCU-385 PO; -EPOE20002 SQ; -FAMO20 PO; +FERR325T23 PO; +FOLI0.8T22 PO; -INSU100V SQ; +LOSA-381 PO; -NIFE30TA98 PO; +NITR0.4T52 SL; -OXYC-490 PO; +PANT-31 PO; +PARI1CAP PO; -PARI5VIA IVP; +SODI5POW3 PO
[2022-05-14 12:08] VITALS: BP 134/70
== END | disposition home or self-care (01) ==
LOC: SRCNTR 11:56
PROVIDERS: ATTEND Internal Medicine
DX: I12.0 Hypertensive chronic kidney disease with stage 5 chronic kidney disease or end stage renal disease (principal); E11.22 Type 2 diabetes mellitus with diabetic chronic kidney disease; N18.6 End stage renal disease; I25.10 Atherosclerotic heart disease of native coronary artery without angina pectoris; J90 Pleural effusion, not elsewhere classified; Z99.2 Dependence on renal dialysis; Z89.612 Acquired absence of left leg above knee; Z95.5 Presence of coronary angioplasty implant and graft
CPT/HCPCS: G0463; Z7500